=== PATIENT | female | born 1945 | race Caucasian/White ===

== ENCOUNTER 2016-12-30 20:29 | Emergency (ER) | payer OTHER ==
[2016-12-30 20:57] LABS: ASCORBIC ACID (UR NOT ORDER) NEG (NEG); BILIRUBIN, URINE NEGATIVE (NEG); ER URINALYSIS TAT 0 Hrs 09 Mins; KETONE, URINE NEGATIVE (NEG); LEUKOCYTE ESTERASE(NOT OR MOD (NEG); NITRITE (URINE) NEG (NEG); WBC (NOT ORDERED) (RFLEX) 30 (0-5)
[2016-12-30 21:26] LABS: BASOPHILS 0.3 %; BASOPHILS ABSOLUTE 0.02 10/3/uL (0.0-0.16); EOSINOPHILS 2.5 %; EOSINOPHILS ABSOLUTE 0.17 10/3/uL (0.0-0.53); ER CBC TAT 0 Hrs 13 Mins; HEMOGLOBIN 11.9 g/dL (12.0-16.0); IMMATURE GRANULOCYTES 0.3 %; IMMATURE GRANULOCYTES ABSOLUTE 0.02 10/3/uL (0.0-0.11); LYMPHOCYTES 19.5 %; MEAN CORPUS HGB CONC 33.7 g/dL (32.0-36.0); MEAN CORPUSCULAR HEMOGLOB 31.9 pg (26.0-34.0); MEAN CORPUSCULAR VOLUME 94.6 fL (80-100); MEAN PLATELET VOLUME 11.1 fL (9.2-13.0); MONOCYTES 6.9 %; MONOCYTES ABSOLUTE 0.46 10/3/uL (0.21-1.20); NEUTROPHILS 70.5 %; PLATELET COUNT 188 10/3/uL (150-400); RBC DISTRIBUTION WIDTH 14.4 % (12.0-16.0); RED CELL COUNT 3.73 10/6/uL (4.0-5.6); WHITE BLOOD CELLS 6.7 10/3/uL (4.5-10.5)
[2016-12-30 21:28] LABS: HEMATOCRIT 35.3 % (36.0-48.0); MANUAL DIFF NO %
[2016-12-30 21:41] LABS: ALBUMIN 3.6 G/DL (3.5-5.0); ALKALINE PHOSPHATASE 57 U/L (45-117); BUN (BLOOD UREA NITROGEN) 19 MG/DL (6-23); CALCIUM, SERUM 9.1 MG/DL (8.5-10.4); CHLORIDE, SERUM 102 MMOL/L (96-112); CO2 (CARBON DIOXIDE) 31 MMOL/L (24-34); CREATININE 0.72 MG/DL (0.55-1.02); GFR AFRICAN AMERICAN 99 ML/MIN (>=60); GFR NON AFRICAN AMERICAN 85 ML/MIN (>=60); GLOBULIN 3.7 G/DL (2.5-4.1); POTASSIUM, SERUM 3.7 MMOL/L (3.5-5.3); SGOT(AST) 19 U/L (5-40); SGPT(ALT) 27 U/L (5-65); SODIUM, SERUM 139 MMOL/L (135-148); TOTAL BILIRUBIN 0.8 MG/DL (0-1.2); TOTAL PROTEIN 7.3 G/DL (6.0-8.5)
[2016-12-30 21:44] LABS: GLUCOSE, SERUM 91 MG/DL (60-99)
[2017-03-12] MEDS ORDERED: GLUCCHONDR PO (08:13)
[2017-03-12] MEDS ORDERED: HYDROCHLOROT25 MG PO (08:14)
[2017-03-12] MEDS ORDERED: SUPER B COMP PO (08:14)
[2017-03-12] MEDS ORDERED: VITAMIN D31000 UNIT PO (08:14)
[2017-03-12] MEDS ORDERED: L20 PO (08:15)
[2017-03-12] MEDS ORDERED: LIPITOR20 PO (08:15)
[2017-03-12] MEDS ORDERED: NORV25 PO (08:16)
[2017-03-12] MEDS ORDERED: AVAPRO300 MG PO (08:16)
[2017-03-12] MEDS ORDERED: SPIRO25 PO (08:16)
[2017-03-12] MEDS ORDERED: KLOR-CON 1010 MEQ PO (08:17)
[2017-03-12] MEDS ORDERED: TOPXL25 PO (08:19)
[2017-03-12] MEDS ORDERED: PREV30 PO (08:20)
[2017-03-12] MEDS ORDERED: PROLOP100 PO (08:22)
== END 2016-12-31 02:24 | disposition home or self-care (01) ==
LOC: ER 20:29
PROVIDERS: Emergency Medicine
DX: N30.91 Cystitis, unspecified with hematuria (principal); I10 Essential (primary) hypertension
CPT/HCPCS: 80053; 81001; 83690; 85025; 87077; 87086; 87186; 96372; 99283; A9270-GY